=== PATIENT | female | born 2000 | race Caucasian/White ===

== ENCOUNTER 2024-06-21 08:10 | Outpatient (AMB) | payer OTHER, SELFPAY ==
--- NOTE | 2024-06-21 08:11 | MHC.PC.OV ---
Vital Signs 06/21/24 08:20 Height 5 ft 0.63 in Weight 142 lb 2 oz BMI 27.2 BP 122/70 Blood Pressure Location Rt brachial Position Sitting Respiration 13 Pulse 58 Pulse Source Pulse Oximeter Temp 96.8 F Temp Source Oral Pulse Oximetry (%) 100 Oxygen Delivery Method Room Air Intake Visit Reasons: ESTABLISHING CARE-REQUESTING PE Intake Note: new patient to establish care Scraper Tender Required: No Allergies No Known Allergies Allergy (Verified 06/21/24 08:25) Medication List - Last Reconciled 06/21/24 by CITLALI Yost No Known Home Meds Tobacco use date assessed: 06/21/24 Dental Screening Dental Screen Date: 06/21/24 Did you have a dental visit in the last 12 months?: Yes Did you have a dental problem in the last 6 months where you did not have access to dental care?: No Was dental information given to patient?: Patient has dentist HPI HPI Comments History of Present Illness Details 24 y/o F with stutter otherwise no significant medical history. 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 - Family: Unmarried, cultural and familial pressure noted regarding marital status. Provides transportation for via-Hssbila-bjvkwckl parents. - Yarsani Activities: Active involvement in episcopalian provides social support. - Lifestyle: Manages work-life balance effectively, participating in family duties, social and yazidism activities. Surgery: None Family hx: Dad with goiter, Denies CAD, Cancer or DM. Health Maintenance Tdap declined Flu UTD Pap declined, has never had one Specialists: Optho, contacts Here today to est care No medical records Previous PCP: nothing since Pedi Declined screening labs Feels well. Has L ear pain, started last night. The patient suspects eczema based on episodes of dry, itchy patches on her hands, typically worsened by overuse of hand sanitizers. She manages occasional depression and anxiety from family pressures, remaining functional without professional intervention. Physical strain at work contributes to her occasional back pain, with massages providing symptomatic relief. Review of Systems - Dermatologic: Reports dry, itchy patches on hands associated with suspected eczema. - Psychiatric: Occasional symptoms of depression and anxiety, managed without medication. - Musculoskeletal: Reports occasional lower back pain related to work activities. - Auditory: Reports ear pain and previous hearing issues due to wax buildup. Physical Exam General: Well developed, well nourished, in no acute distress. Appears stated age. Head: Normocephalic, atraumatic. Eyes: Pupils are equal, round and reactive to light and accommodation. Conjunctivae are clear. Vision grossly normal. Patient wears contact lenses. Ears: TMs clear AU, EACS WNL. Ear wax noted, especially in the left ear, Nose: Patent, without discharge. Neck: Supple, no adenopathy or thyromegaly. Breast: Edu on SBE. Patient advised to check breasts for lumps or changes. Lungs: Clear to auscultation bilaterally. No rales, rhonchi or wheeze noted. Good air flow in all nava. Heart: Regular rate and rhythm. No murmurs, click, rubs or gallops are noted. : Deferred. 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 Patient not sexually active. Pulses: Peripheral pulses are equal and palpable bilaterally. Extremities: No clubbing, cyanosis nor edema is noted. Reports foot pain after long work shifts. Neurologic: Gait and station normal. Cranial Nerves 2-12 intact. Motor strength grossly symmetrical and intact. No sensory loss. Balance normal. Skin: No rashes, ulcers, or lesions noted. Turgor is good. Skin color is good. Hair and nails are without abnormalities. Skin to bilat hands dry Psych: Normal eye contact, affect and mood appropriate, and normal interactions. Patient is alert and appropriate to context. Discussion Notes I discussed with the patient the primary concerns about her ear pain and probable earwax blockage. 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 Additionally, we talked about her feelings of occasional depression and anxiety, primarily due to familial responsibilities and cultural expectations. For the earwax blockage, I suggested an ear flushing procedure to alleviate symptoms, and the patient expressed willingness to proceed. I emphasized the importance of maintaining her mental health and encouraged her to continue utilizing support systems available to her. We agreed upon a follow-up in one year unless other medical concerns arise. Assessment and Plan 24-year-old female with a history of suspected eczema and episodic back pain presenting with ear pain. This examination highlights a possible earwax blockage contributing to the ear pain. 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 Depression/anxiety symptoms appear situationally triggered and are being managed effectively. Her lower back pain seems related to musculoskeletal strain and managed with massage therapy. 1. Earwax Blockage Ear pain results from wax buildup. Ear flushing is planned to relieve discomfort and restore hearing. 2. Adjustment disorder with mixed anxiety and depressed mood F43.23 Depression and anxiety managed through social support and episcopalian activities without medical intervention. 3. Back Pain Muscle-related back pain relieved with massage therapy; no further medical intervention needed. 4. Suspected Eczema Symptoms of eczema on hands appear related to occupational factors. Continued use of moisturizers is recommended. Patient Instructions - Undergo ear flushing procedure for wax removal. - Continue using moisturizers to manage suspected eczema. - Seek support from social and episcopalian activities for emotional well-being. - Discuss with employer ways to reduce potential occupational strain. Consent The patient consented to an ear flushing procedure after discussing the benefits of alleviating ear pain and improving hearing clarity. Risks of mild discomfort during the procedure were acknowledged, and the patient agreed to proceed based on prior successful experiences. Patient was informed and verbally consented to the use of an ambient scribe for clinic note documentation during this visit. RTO 1 YEAR CPE, SOONER PRN PFSH Medical History (Updated 06/21/24 @ 08:51 by Irena Walker [facility]) No pertinent past medical history Surgical History (Updated 06/21/24 @ 08:19 by Zachary Matthews) No pertinent past surgical history Family History (Updated 06/21/24 @ 08:19 by Zachary Matthews) Maternal Grandmother Mental health disorder Father Hypertension Thyroid disorder Social History (Updated 06/21/24 @ 08:18 by Zachary Matthews) Household Members: Family Both parents involved: Yes Caregiver staying overnight: No Housing: House Are you a primary career development manager to a significant other at home: No Do you presently have visiting nurse or other home services: No 75 years or older and lives alone: No Alcohol intake: never Patient Tobacco Use Status: Never used Tobacco e-Cigarette/Vaping Use: Never Used service: No Current occupational status: employed 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 1. Little interest or pleasure in doing things: more than half the days 2. Feeling down, depressed, or hopeless: more than half the days 3. Trouble falling or staying asleep, or sleeping too much: not at all 4. Feeling tired or having little energy: more than half the days 5. Poor appetite or overeating: not at all 6. Feeling bad about yourself - or that you are a failure or have let yourself or your family down: several days 7. Trouble concentrating on things, such as reading the newspaper or watching television: not at all 8. Moving or speaking so slowly that other people could have noticed. Or the opposite - being so fidgety or restless that you have been moving around a lot more than usual: not at all 9. Thoughts that you would be better off or of hurting yourself in some way: not at all Total score: 7 Depression Screening Interpretation: Negative Depression Screening Done: Yes 84096 - PHQ-9 Billing: Yes Source: Developed by Drs. Jimmy Wallace, Bailey Rojas, David Ibarra and colleagues, with an educational mila from [employer]. Thrive Questionnaire Date Thrive assessed: 06/21/24 I am a: Patient What is your living situation today?: I have a steady place to live Within the past 12 months, did the food you bought not last and you didn't have the money to get more?: Never true Within the past 12 months, did you worry whether your food would run out before you got money to buy more?: Never true Do you have trouble paying for medicines?: No Do you have trouble getting transportation to medical appointments?: No Do you have trouble paying your heating and electricity bill?: No Do you have trouble taking care of your child, family member or friend?: No Do you have trouble with day-to-day activities such as bathing, preparing meals, shopping, managing finances, etc.?: No Are you currently unemployed and looking for a job?: No Are you interested in more education?: No Please select the resources that you would like help with: None Currently or been in a relationship where the following occur: No concerns reported THRIVE Score: 0 AUDIT C Alcohol Use Questionnaire (AUDIT-C) 1. How often do you have a drink containing alcohol?: Never 3. How often do you have six or more drinks on one occasion?: Never Total Score: 0 Score Reviewed/Action Taken: Yes MAAME-7 AMB Questionnaire MAAME-7 Date MAAME - 7 assessed: 06/21/24 Feeling nervous, anxious, or on edge: 1 = Several days Not being able to stop or control worryin = Several days Worrying too much about different things: 1 = Several days Trouble relaxin = Not at all Being so restless that it is hard to sit still: 0 = Not at all Becoming easily annoyed or irritable: 1 = Several days Feeling afraid as if something awful might happen: 0 = Not at all Total MAAME-7 score (0-4 normal; 5-9 mild; 10-14 moderate; 15-21 severe): 4 Source: Developed by Drs. Jimmy Wallace, Bailey Rojas, David Ibarra and colleagues, with an educational mila from [employer]. MAAME-7 Assessment Billing MAAME-7 Assessment Tool: MAAME-7 Assessment 59848 Physical exam (Primary Care) Vital Signs: Last Vital Signs Temp 96.8 F 06/21/24 08:20 Pulse 58 06/21/24 08:20 Resp 13 06/21/24 08:20 BP 122/70 06/21/24 08:20 Pulse Ox 100 06/21/24 08:20 Oxygen Delivery Method Room Air 06/21/24 08:20 BMI result Body Mass Index 27.2 Tobacco/Smoking Status: Tobacco use Status Tobacco use date assessed 06/21/24 06/21/24 08:20 Patient Tobacco Use Status Never used Tobacco 06/21/24 08:20 e-Cigarette/Vaping Use Never Used 06/21/24 08:20 Depression Screening Interpretation: Negative Thrive Assessment: Date of Thrive Assessment Date Thrive assessed 06/21/24 06/21/24 08:14 Currently or been in a relationship where the following occur: No concerns reported Office Procedures Cerumen Removal From which ear canal was the cerumen removed: bilateral Removal: irrigation Notes: patient tolerated procedure well, no complications and ear canal clear 68277-Oaj Irrigation/Lavage Coding Level of Care Code New Pt Prev Care 18-39yr(34950 Diagnoses Encounter for general adult medical examination without abnormal findings Z00.00 Tetanus, diphtheria, and acellular pertussis (Tdap) vaccination declined Z28.21 Influenza vaccination up to date Z92.29 Papanicolaou smear declined Z53.20 Stutter F80.81 Impacted cerumen, bilateral H61.23 Intermittent low back pain M54.50 Adjustment disorder with mixed anxiety and depressed mood F43.23 CPT Codes Office Procedure - CPT: 32673-Rwy Irrigation/Lavage ([id number]) Additional Codes MAAME-7 Assessment Billing - MAAME-7 Assessment Tool: MAAME-7 Assessment 19169 ([id number]) PHQ-9 - 33682 - PHQ-9 Billing: Yes ([id number]) Assessment & Plan Assessment & Plan (1) Encounter for general adult medical examination without abnormal findings: Code(s): Z00.00 - Encounter for general adult medical examination without abnormal findings Category: Medical (2) Tetanus, diphtheria, and acellular pertussis (Tdap) vaccination declined: Code(s): Z28.21 - Immunization not carried out because of patient refusal Category: Medical (3) Influenza vaccination up to date: Code(s): Z92.29 - Personal history of other drug therapy Category: Medical (4) Papanicolaou smear declined: Code(s): Z53.20 - Procedure and treatment not carried out because of patient's decision for unspecified reasons Category: Medical (5) Stutter: Code(s): F80.81 - Childhood onset fluency disorder Category: Medical (6) Impacted cerumen, bilateral: Code(s): H61.23 - Impacted cerumen, bilateral (7) Intermittent low back pain: Code(s): M54.50 - Low back pain, unspecified Category: Medical (8) Adjustment disorder with mixed anxiety and depressed mood: Code(s): F43.23 - Adjustment disorder with mixed anxiety and depressed mood Category: Medical Plan . Patient Instructions: Health screenings for women You should visit your health care provider from time to time, even if you are healthy. The purpose of these visits is to: Screen for medical issues Assess your risk for future medical problems Encourage a healthy lifestyle Update vaccinations and other preventive care services Help you get to know your provider in case of an illness Information Even if you feel fine, you should still see your provider for regular checkups. These visits can help you avoid problems in the future. For example, the only way to find out if you have high blood pressure is to have it checked regularly. High blood sugar and high cholesterol levels also may not have any symptoms in the early stages. A simple blood test can check for these conditions. There are specific times when you should see your provider or receive specific health screenings. The [place] Preventive Services Task Force publishes a list of recommended screenings. Below are screening guidelines for women ages 18 to 39. BLOOD PRESSURE SCREENING Your blood pressure should be checked at least once every 3 to 5 years if: Your blood pressure is in the normal range (top number less than 120 mm Hg and bottom number less than 80 mm Hg) You don't have risk factors for high blood pressure Ask your provider if you need your blood pressure checked more often if: The top number is 120 to 129 mm Hg or the bottom number is 70 to 79 mm Hg You have diabetes, heart disease, kidney problems, are overweight, or have certain other health conditions You have a first-degree relative with high blood pressure You are Black You had high blood pressure during a If the top number is 130 mm Hg or greater or the bottom number is 80 mm Hg or greater, this is considered stage 1 hypertension. Schedule an appointment with your provider to learn how you can reduce your blood pressure. Watch for blood pressure screenings in your area. Ask your provider if you can stop in to have your blood pressure checked. BREAST CANCER SCREENING Experts do not agree about the benefits of breast self-exams in finding breast cancer or saving lives. Talk to your provider about what is best for you. A screening mammogram is not recommended for most women under age 40. Your provider may discuss and recommend mammograms, MRI scans, or ultrasounds if you have an increased risk for breast cancer, such as: A mother or sister who had breast cancer at a young age (most often starting screening earlier than the age the close relative was diagnosed) You carry a high-risk genetic marker CERVICAL CANCER SCREENING Cervical cancer screening should start at age 21 years unless your provider advises otherwise. After the first test: Women ages 21 through 29 should have a Pap test every 3 years. Exoprts do not agree on whether HPV testing is recommended for this age group. Women ages 30 through 65 should be screened with either a Pap test every 3 years or the HPV test every 5 years or both tests every 5 years (called cotesting ). Women who have been treated for precancer (cervical dysplasia) should continue to have Pap tests for 20 years after treatment or until age 65, whichever is longer. If you have had your uterus and cervix removed (total hysterectomy), and you have not been diagnosed with cervical cancer or precancer (high grade cervical neoplasia), you do not need cervical cancer screening. CHOLESTEROL SCREENING Cholesterol screening should begin at: Age 45 for women with no known risk factors for coronary heart disease Age 20 for women with known risk factors for coronary heart disease Repeat cholesterol screening should take place: Every 5 years for women with normal cholesterol levels More often if changes occur in lifestyle (including weight gain and diet) More often if you have diabetes, heart disease, kidney problems, or certain other conditions DIABETES SCREENING You should be screened for diabetes starting at age 35 and then repeated every 3 years if you have no risk factors for diabetes. Screening may need to start earlier and be repeated more often if you have other risk factors for diabetes, such as: You have a first degree relative with diabetes. You are overweight or have obesity. You have high blood pressure, prediabetes, or a history of heart disease. Screening for diabetes should be done if you are planning to become and you are overweight and have other risk factors such as high blood pressure. DENTAL EXAM Go to the dentist once or twice every year for an exam and cleaning. Your dentist will evaluate if you need more frequent visits. EYE EXAM Have an eye exam every 5 to 10 years before age 40. If you have vision problems, have an eye exam every 2 years or more often if recommended by your provider. You should have an eye exam that includes an examination of your retina (back of your eye) at least every year if you have diabetes. IMMUNIZATIONS Commonly needed vaccines include: Flu shot: get one every year. COVID-19 vaccine: ask your provider what is best for you. Tetanus-diphtheria and acellular pertussis (Tdap) vaccine: have one at or after age 19 as one of your tetanus-diphtheria vaccines if you did not receive it as an adolescent. Tetanus-diphtheria: have a booster (or Tdap) every 10 years. Varicella vaccine: receive 2 doses if you never had chickenpox or the varicella vaccine. Hepatitis B vaccine: receive 2, 3, or 4 doses, depending on your exact circumstances. Measles, mumps, and rubella (MMR) vaccine: receive 1 to 2 doses if you are not already immune to MMR. Your provider can tell you if you are immune. Ask your provider about the human papillomavirus (HPV) vaccine if: You have not received the HPV vaccine in the past You have not completed the full vaccine series (you should catch up on this shot) Ask your provider if you should receive other immunizations if you have certain health problems that increase your risk for some diseases such as pneumonia. INFECTIOUS DISEASE SCREENING Women who are sexually active should be screened for chlamydia and gonorrhea up until age 25. Women 25 years and older should be screened for chlamydia and gonorrhea if at high risk. Screening for hepatitis C: All adults ages 18 to 79 should get a one-time test for hepatitis C. people should be screened at every . Screening for human immunodeficiency virus (HIV): All people ages 15 to 65 should get a one-time test for HIV. Depending on your lifestyle and medical history, you may also need to be screened for infections such as syphilis and HIV, as well as other infections. PHYSICAL EXAM All adults should visit their provider from time to time, even if they are healthy. The purpose of these visits is to: Screen for disease Assess your risk of future medical problems Encourage a healthy lifestyle Update your vaccinations and other preventive care services Maintain a relationship with a provider in case of an illness Your height, weight, and BMI should be checked at every exam. During your exam, your provider may ask you about: Depression and anxiety Diet and exercise Alcohol and tobacco use Safety issues, such as using seat belts, smoke detectors, and intimate partner violence Your medicines and risk for interactions SKIN SELF-EXAM Your provider may check your skin for signs of skin cancer, especially if you're at high risk, such as if you: Have had skin cancer before Have close relatives with skin cancer Have a weakened immune system OTHER SCREENING Talk with your provider about colon cancer screening if you have a strong family history of colon cancer or polyps, or if you have had inflammatory bowel disease or polyps yourself. Routine bone density screening of women under 40 is not recommended. Walk-In Care (Urgent Care): We Make it Easy Walk-in for urgent medical issues such as: ? Seasonal Allergies ? Insect Bites ? Cough ? Diarrhea ? Acute Asthma Attacks ? Back, Knee or Joint Pain ? Ear Infection ? Fever without a Rash ? Headaches ? Nausea ? [place], Rash or Skin Irritation ? Sore Throat ? Sports Physicals ? Vomiting Most insurances are accepted. Patients do not need to be part of the [facility] to seek care at the walk-in clinic. Locations [address] [facility] , [place] [address] ? [phone] [facility] Walk-In Care in [place] provides services to ages 18 and over. Open Friday-Friday: 8 a.m. to 5 p.m. and Friday: 9 a.m. to 3 p.m.* *Hours may vary due to staffing availability. To confirm Walk-In Care hours in [place], please call [phone]. [address] [place] [address] ? [phone] [facility] Walk-In Care in [place] provides services to ages 12 and over. Open Friday-Friday: 8 a.m. to 5 p.m. Hours may vary due to staffing availability. To confirm Walk-In Care hours in [place], please call [phone]. LABORATORY SERVICES: [facility] Lab ? Primary Location [address] [place] [address] Friday through Friday 6:00 AM ? 5:00 PM Friday 7:00 AM ? 11:00 AM* [phone] The [facility] Lab is centrally located near the front entrance of the [facility] for easy outpatient access. Convenient parking is provided for outpatients. *Hours may vary due to staffing availability. To confirm Laboratory hours for any location, please call [phone]. Offsite Location For your convenience, we offer offsite laboratory draw stations at the following locations: [address] [place] [address] ? [address], [address] Friday through Friday 7:30 AM ? 1:00 PM* [phone] *Hours may vary due to staffing availability. To confirm Laboratory hours for any location, please call [phone]. [place] ? [address] Friday through Friday 6:00 AM ? 3:30 PM* Friday 6:30 AM ? 3 PM* [phone] *Hours may vary due to staffing availability. To confirm Laboratory hours for any location, please call [phone]. [address] [facility] Friday through Friday 7:30 AM ? 4:00 PM* [phone] *Hours may vary due to staffing availability. To confirm Laboratory hours for any location, please call [phone]. [address] [facility] Friday through 9:00 AM ? 4:00 PM* *Hours may vary due to staffing availability. To confirm Laboratory hours for any location, please call [phone]. Appointments are not necessary. Walk-ins are welcome. Like all the departments throughout the [facility], our Lab undergoes frequent reviews to ensure the quality and accuracy of test results, and our staff takes special pride in its status as a nationally accredited facility. Patient Portal: ONE PATIENT. ONE RECORD. BETTER CARE. [facility] has a fully integrated, cutting-edge mobile electronic health information system that has revolutionized the way we care for our patients and manage our organization. This system improves communication and coordination enabling us to provide safe, higher-quality care, and an overall positive experience for staff and patients. Our first priority, as always, is to deliver the highest quality care possible. The system is running in the background supporting that priority. This portal is for all [facility] and [facility] services and practices. If you are experiencing any technical difficulties with enrolling or logging into the Patient Portal please complete the [facility] Patient Portal Technical Support Form. [facility] and [facility] now offers a new secure on-line interactive tool for patients to review their health information ? Patient Portal. This interactive web portal will enable patients and their families to take an active role in their care by providing easy, secure access to their health information via the internet. The Patient Portal provides patients with instant access to their health information, including laboratory results, medications, allergies, demographic information, visit history, and more. In addition to managing their own care, parents and health care proxies with authorized consent will appreciate the ability to access the records of those individuals for whom they provide care. Please note: if you wish to gain access (Proxy) to another patient?s portal, you will be required to come to the Medical Records Department in person at [facility]. Both the patient giving proxy access and the proxy will need to provide photo identification and complete the appropriate authorization. The Patient Portal also allows track their appointments online. The [facility] Patient Portal also saves patients time by allowing them to submit updates to their demographic and contact information prior to their visits. Portal email notifications will also alert patients to any new activity on their portal, such as test results and new appointments. In order to initially enroll in the [facility] Patient Portal, you will need to enter some required information including the following: ? your [facility] Medical Record number ? your personal home email address ? name ? date of Please note: In order to enroll in the [facility] Patient Portal, we need to have your email address on file in your electronic medical record. The email address needs to be specific for one person (yourself) in order for your Portal enrollment to be successful. You can update your email address in person with our Registration staff when you are registering for a hospital visit. Otherwise, you will need to come to the Health Information Management (Medical Records) Department at [facility]. We are open from Friday ? Friday from 7:30 a.m. ? 4:30 p.m. You will be required to present a photo id. Once you have successfully enrolled in the Patient Portal, you will receive a one-time user id and password for the Portal, sent to your email address. This will allow you to log into the Patient Portal within 99 hrs and reset your own logon id and password, and define personal security questions. Once your permanent login and password have been set, you can log into the [facility] Patient Portal at any time via the blue button above or from the Portal Logon button on any page of the [facility] website. [facility] and [facility] encourage all of our patients to enroll in Patient Portal as it presents a valuable opportunity for patients and their families to actively participate in their care and stay healthy Welcome to [facility]. We look forward to working with you.
--- OUTSIDE RECORDS SUMMARY | 2024-06-21 08:12 | XMS_ITS | Clinical Summary ---
Author Organization [facility] Address [address] [place] [id number] Phone Care Team Providers Care Cone Picker Name Role Phone Unavailable Primary Care Provider Unavailabl e Immunizations Immunization Administration Dates Next Due DTaP 08/03/2002, 0,1998, 998,1998 Hep B, ped/adol 09/22/2003,06/01/2003,09/02/2002 Hib (PRP-T) 08/03/2002 IPV 08/03/2002, 0,02/21/1999, 999,1998 MMR 09/22/2003,08/03/2002 Meningococcal Conj (Menactra) MCV4P 05/03/2015,1 05/04/2010 Tdap 03/04/2011 Varicella 03/04/2011,09/14/2007 Family History Relation Name Status Comments Father Alive Healthy age: 42 Maternal Grandfather Alive heart d isease [place] diagnosed with HEART DISEASE NOS Maternal Grandmother Alive [place] diag nosed with HEART DISEASE NOS Mother Alive Healthy age: 43 Paternal Grandfather Alive Healthy Paternal Grandmother ETOH Social History Tobacco Use Types Packs/Day Years Used Date Smoking Tobacco: Never Assessed Comments Unknown Sex and Gender Information Value Date Recorded Sex Assigned at Not on file Legal Sex Female 6:09 PM EDT Gender Identity Not on file Sexual Orientation Not on file Last Filed Vital Signs Vital Sign Reading Time Taken Comments Blood Pressure 126/68 05/03/2015 12:00 AM EST Pulse - - Temperature 36.8 ??C (98.3 ??F) 03/04/2011 12:[address] Respiratory Rate - - Oxygen Saturation - - Inhaled Oxygen Concentration - - Weight 54.9 kg (121 lb) 05/03/2015 12:00 AM EST Height 163.8 cm (5' 4.5 ) 05/03/2015 12:00 AM ES T Body Mass Index 20.45 05/03/2015 12:00 AM EST Plan of Treatment Health Maintenance Due Date Last Done Comments HPV Vaccines (1 - 3-dose series) 2013 DTaP,Tdap,and Td Vaccines (7 - Td or Tdap) 03/04/2021 03/04/2011, 08/03/2002, 02/22/2000, Additional history exists Influenza Vaccines (#1) 2023 COVID-19 Vaccine (2023- season) 2023 HIB Vaccines Completed 08/03/2002 IPV Vaccines Completed 08/03/2002, 01/27, 02/21/1999, Additional history exists Hepatitis B Vaccines Completed 09/22/2003, 06/01/2003, 09/02/2002 MMR Vaccines Completed 09/22/2003, 08/03/2002 Varicella Vaccines Completed 03/04/2011, 09/14/2007 Meningococcal Vaccine Completed 05/03/2015, 011 Hepatitis A Vaccines Aged Out No long er eligible based on patient's age to complete this topic Men B Vaccine Aged Out No longer elig ible based on patient's age to complete this topic Pneumococcal Vaccine Aged Out No long er eligible based on patient's age to complete this topic
--- OUTSIDE RECORDS SUMMARY | 2024-06-21 08:12 | XMS_ITS | Encounter Summary ---
Author Organization [facility] Address [address] [place] [id number] Phone Care Team Providers Care Marble Installation Helper Name Role Phone Kathryn Johnson MD Primary Care Provider [phone] Encounter Details Date Type Department Care Team (Late st Contact Info) Description 09/14/2017 [facility] [address] [address] Kathryn Johnson MD [address] [place] [address] Social History Tobacco Use Types Packs/Day Years Used Date Smoking Tobacco: Never Assessed Comments Unknown Sex and Gender Information Value Date Recorded Sex Assigned at Not on file Legal Sex Female 6:09 PM EDT Gender Identity Not on file Sexual Orientation Not on file documented as of this encounter Plan of Treatment Not on file documented as of this encounter Visit Diagnoses Not on filedocumented in this encounter Care Teams Marble Installation Helper Relationship Specialty Start Date End Date Kathryn Johnson MD [address] [place] [address] PCP - General 09/03/17 06/07/24 documented as of this encounter
[2024-06-21 08:20] VITALS: BP 122/70; PULSE 58; RESP 13; TEMP 36; O2SAT 100; BMI 27.2
== END 2024-06-21 09:04 | disposition home or self-care (01) ==
LOC: HO.HMCFM 08:10
PROVIDERS: PCP Nurse Practitioner Family; Visit Provider Nurse Practitioner Family
DX: Z00.00 Encounter for general adult medical examination without abnormal findings (principal); M54.50 Low back pain, unspecified; Z28.21 Immunization not carried out because of patient refusal; H61.23 Impacted cerumen, bilateral; Z92.29 Personal history of other drug therapy; Z53.20 Procedure and treatment not carried out because of patient's decision for unspecified reasons; F80.81 Childhood onset fluency disorder; F43.23 Adjustment disorder with mixed anxiety and depressed mood

== ENCOUNTER → 2024-06-21 08:10 | Outpatient (BNVA) | payer OTHER, SELFPAY | PROVIDERS: PCP Nurse Practitioner Family; Visit Provider Nurse Practitioner Family | DX: Z00.00 Encounter for general adult medical examination without abnormal findings (principal); F80.81 Childhood onset fluency disorder; H61.23 Impacted cerumen, bilateral; M54.50 Low back pain, unspecified; F43.23 Adjustment disorder with mixed anxiety and depressed mood; Z53.20 Procedure and treatment not carried out because of patient's decision for unspecified reasons; Z92.29 Personal history of other drug therapy; Z28.21 Immunization not carried out because of patient refusal | CPT/HCPCS: 69209; 96127; 99385 ==